=== PATIENT | female | born 1990 | race Two or more races ===

== ENCOUNTER → 2019-04-26 | Outpatient (CLI) | payer BC ==
--- NOTE | 2019-04-26 15:32 | KCIC ---
Study: Ultrasound first trimester DATE: 04/26/2019 12:30 PM INDICATION: First trimester evaluation. COMPARISON: None. TECHNIQUE: Transabdominal ultrasonography of the pelvis was performed. Color Doppler and duplex were utilized as appropriate. FINDINGS: The uterus measures 10.5 x 6.1 x 5.5 cm. The cervix is closed and measures 4 cm. Intrauterine gestational sac containing a pole and yolk sac. heart rate measured at 144 bpm. The yolk sac is measured at 0.5 cm. [place]-rump length measured at 1.13 cm. Estimated gestational age by ultrasound of 7 weeks 2 days. No perigestational hemorrhage is seen. The right ovary measures 5.0 x 3.6 x 3.3 cm. Doppler flow is maintained. Simple right ovarian cyst measured at 3 x 2.6 x 2.3 cm. The left ovary measures 2 x 1.6 x 1.1 cm. Normal Doppler flow is maintained. IMPRESSION: 1. Single live intrauterine with an estimated gestational age by ultrasound of 7 weeks 2 days. No complicating features identified. 2. Simple right ovarian cyst measuring up to 3 cm. Normal Doppler flow to both ovaries. Electronically signed by: LIBRA WORTHY MD (04/26/2019 3:29 PM) [facility]
== END | disposition home or self-care (01) ==
LOC: KCIC US 11:49
PROVIDERS: ATTEND Family Medicine
DX: Z34.91 Encounter for supervision of normal pregnancy, unspecified, first trimester (principal); N83.291 Other ovarian cyst, right side; Z3A.01 Less than 8 weeks gestation of pregnancy
CPT/HCPCS: 76801

== ENCOUNTER → 2019-08-29 | Outpatient (CLI) | payer BC ==
--- NOTE | 2019-08-29 11:07 | KCIC ---
Obstetric ultrasound greater than 14 weeks: Reason for examination: Small for dates. Comparison is made to previous study dated 04/26/2019. Single viable intrauterine gestation is present. Cardiac activity is seen in the 4 chambered heart with a cardiac rate of 131 bpm. Due to positioning, the left ventricular outflow track was difficult to visualize. Placenta is anterior with no previa or abruption. Adequate amniotic fluid appears be present with amniotic fluid index of 10.5 cm. There is a three-vessel umbilical cord with normal insertion. movement was present. No gross abnormality seen at the bladder, stomach, kidneys or spine. No gross intracranial abnormality is apparent. Biparietal diameter 6.39 cm corresponding to gestational age of 25 weeks 6 days. Head circumference 23.35 cm corresponding to gestational age of 25 weeks 3 days. Abdominal circumference 21.45 cm corresponding to gestational age of 26 weeks 0 days. Femur length 4.74 cm corresponding to gestational age of 25 weeks 6 days. Head circumference to abdominal circumference ratio is 1.09. Cephalic index is 80.3. Estimated weight is 860 g or approximately 1 lb.14 oz. Mean gestational age is estimated at 25 weeks 6 days with an estimated date of confinement of 12/06/2019. These dates correspond adequately with clinical dates. Cervix length is normal at 3.59 cm. IMPRESSION: Single viable intrauterine gestation with mean gestational age estimated at 25 weeks 6 days with estimated date of confinement of 12/06/2019. This corresponds adequately to clinical dates. No gross abnormalities evident. Electronically signed by: Kezia Smith MD (08/29/2019 11:04 AM) [id number]
== END ==
LOC: KCIC US 09:24
PROVIDERS: ATTEND Family Medicine
DX: O26.892 Other specified pregnancy related conditions, second trimester (principal); Z3A.25 25 weeks gestation of pregnancy
CPT/HCPCS: 76805

== ENCOUNTER 2019-12-05 05:57 | Inpatient (IN) | payer BC ==
[~2019-12-05] VITALS: Ht 167.6 cm; Wt 92.7 kg
[~2019-12-05 05:57] MED LIST: PNV1TABL25 PO
[2019-12-05] MEDS ORDERED: IBUPROFEN 400 MG TABLET. PO PRN (06:00)
[2019-12-05] MEDS ORDERED: fentaNYL PF VIAL 100 MCG/2 ML VIAL IVP PRN (06:00)
[2019-12-05] MEDS ORDERED: 0.9 % SODIUM CHLORIDE 10 ML DISP.SYRIN. IV PRN (06:00)
[2019-12-05] MEDS ORDERED: TERBUTALINE 1 MG/ML VIAL. SQ PRN (06:00)
[2019-12-05] MEDS ORDERED: OXYTOCIN 30 UNIT/500 ML PREMIX 500 ML IV PRN ×2 (06:00)
[2019-12-05] MEDS ORDERED: BUTORPHANOL 2 MG/ML VIAL. IVP PRN (06:00)
[2019-12-05] MEDS ORDERED: CITRIC ACID/SODIUM CITRATE 30 ML SOLUTION. PO PRN (06:00)
[2019-12-05] MEDS ORDERED: ACETAMINOPHEN 500 MG TABLET PO PRN (06:00)
[2019-12-05] MEDS ORDERED: LIDOCAINE 1% PF 30 ML VIAL. INJ PRN (06:00)
[2019-12-05] MEDS ORDERED: ONDANSETRON PF 4 MG/2 ML VIAL. IVP PRN (06:00)
[2019-12-05] MEDS: IV RINGERS,LACTATED 1000ML 1,000 ML IV SCH ×2 (06:30→13:57)
[2019-12-05 06:43] LABS: BASO # 0.1 x10^3/uL (0.0-0.2); BASO % 1 % (0-3); EOS % 1 % (0-3); HEMATOCRIT 35.6 % (36.0-47.0); HEMOGLOBIN 11.9 g/dL (12.0-15.5); LYMPH # 1.8 x10^3/uL (1.0-4.8); LYMPH % 28 % (24-48); MEAN CORPUSCULAR HEMOGLOBIN 28 pg (25-35); MEAN CORPUSCULAR HGB CONC 34 g/dL (31-37); MEAN CORPUSCULAR VOLUME 84 fL (79-100); MONO # 0.4 x10^3/uL (0.0-1.1); MONO % 7 % (0-9); NEUT # 4.1 x10^3/uL (1.8-7.7); NEUT % 64 % (31-73); PLATELET COUNT 241 x10^3/uL (140-400); RED BLOOD COUNT 4.24 x10^6/uL (3.50-5.40); RED CELL DISTRIBUTION WIDTH 15.6 % (11.5-14.5); WHITE BLOOD COUNT 6.4 x10^3/uL (4.0-11.0)
[2019-12-05 07:23] LABS: BILIRUBIN,URINE NEGATIVE (NEG); CLARITY,URINE CLEAR; COLOR,URINE YELLOW; NITRITE,URINE NEGATIVE (NEG); PROTEIN,URINE NEGATIVE (NEG-TRACE)
[2019-12-05 07:31] LABS: SQUAMOUS EPITHELIAL CELL,UR OCC /LPF
[2019-12-05 07:32] LABS: BACTERIA,URINE FEW /HPF (0-FEW); RBC,URINE OCC /HPF (0-2)
--- NOTE | 2019-12-05 08:46 | PDOC1 ---
OB - History Hx of Present Care: Good Care Ultrasounds: Abnormal US findings Obstetrical Complications: Other (Covid positive) Past Family/Social History * Past Medical, Surgical, Family and Obstetric Histories reviewed from chart. Blood Type: O+ Rubella: Immune RPR/VDRL: Negative GBS Status: Negative HBsAG: Negative OB - Chief Complaint & HPI Date of Admission: Date of Admission: Dec 05, 2019 at 05:57 Chief Complaint/History : 4 Para: 3 EDC: Dec 11, 2019 Reason for admission: active labor Admission Nurse Assessment Rev: Yes OB - Admission Exam Physical Exam HEENT: Normal, Nasal Mucosa Normal, Oropharynx Normal, Moist Membranes, Fontanelles Normal Heart: Regular Rate Lungs: Clear, Equal Abdomen: Gravid Extremities: Normal Pulses, No tenderness or swelling Reflexes: Normal Cervical Dilatation: 5cm Effacement: 100% Membranes: Intact Amniotic Fluid: Clear Heart Rate: Normal Accelerations: Accelerations Present Decelerations: No decelerations Short Term Variability: Present Team Coordinator Variability: Moderate Contractions on Admission: < 5 Minutes Apart Intensity: KASSIDY Alston MD Dec 05, 2019 08:46
[2019-12-05 13:10] VITALS: BP 118/71
[2019-12-05] MEDS ORDERED: PHENYLEPH/MINERAL OIL/PETROLAT RECTAL OINTMENT TUBE. RC PRN (13:45)
[2019-12-05] MEDS ORDERED: MMR per PROTOCOL. MC PRN (13:45)
[2019-12-05] MEDS ORDERED: MAG HYDROX/ALUMINUM HYD/SIMETH 30 ML ORAL.SUSP PO PRN (13:45)
[2019-12-05] MEDS ORDERED: SIMETHICONE 80 MG TAB.CHEW PO PRN (13:45)
[2019-12-05] MEDS ORDERED: MAGNESIUM HYDROXIDE 2,400 MG/30 ML ORAL.SUSP. PO PRN (13:45)
[2019-12-05] MEDS ORDERED: ZOLPIDEM 5 MG TABLET. PO PRN (13:45)
[2019-12-05] MEDS ORDERED: diphenhydrAMINE HCL 25 MG CAPSULE PO PRN (13:45)
[2019-12-05] MEDS ORDERED: TDaP (Adacel) per PROTOCOL. MC PRN (13:45)
[2019-12-05 14:10] VITALS: BP 111/65
--- NOTE | 2019-12-05 14:21 | OP ---
DATE OF SURGERY: DELIVERY NOTE CLINICAL COURSE: This patient is a G4, P3 female admitted for labor with EDC of 12/11/2019. This patient had no risk except for COVID positive during , which completely resolved after mild symptoms. She was presenting for induction began having labor pains at 04:00 a.m. prior to admission. She underwent amniotomy with clear fluid noted and Pitocin augmentation. Obtaining complete dilatation and delivering a viable female infant with Apgars of 8, 9 and 9. was suctioned and 30 seconds of cord resuscitation was accomplished. Cord was clamped and transected, and was handed off. Placenta was delivered intact with 3-vessel cord noted. Uterus was firm with Pitocin and palpation. There was approximately 200 mL blood loss. There is no anesthesia at this delivery. Mother and baby to recovery in stable condition. KASSIDY GOODWIN MD DR: TARA/belgica JOB#: [id number] / [id number]
[2019-12-05] MEDS ORDERED: FERROUS SULFATE 325 MG TABLET. PO SCH (17:00)
[2019-12-05 18:29] VITALS: BP 121/78
[2019-12-05 22:00] VITALS: BP 130/84
[2019-12-06 04:10] VITALS: BP 109/71
[2019-12-06 07:09] LABS: BASO % 1 % (0-3); EOS # 0.1 x10^3/uL (0.0-0.7); EOS % 1 % (0-3); HEMOGLOBIN 10.7 g/dL (12.0-15.5); LYMPH # 1.8 x10^3/uL (1.0-4.8); LYMPH % 23 % (24-48); MEAN CORPUSCULAR HEMOGLOBIN 28 pg (25-35); MEAN CORPUSCULAR HGB CONC 34 g/dL (31-37); MEAN CORPUSCULAR VOLUME 84 fL (79-100); MONO # 0.5 x10^3/uL (0.0-1.1); MONO % 6 % (0-9); NEUT # 5.5 x10^3/uL (1.8-7.7); NEUT % 70 % (31-73); PLATELET COUNT 197 x10^3/uL (140-400); RED CELL DISTRIBUTION WIDTH 15.4 % (11.5-14.5); WHITE BLOOD COUNT 7.9 x10^3/uL (4.0-11.0)
--- NOTE | 2019-12-06 08:07 | PDOC3 ---
OB DISCHARGE SUMMARY DATE OF ADMISSION: 12/05/2019 DATE OF DISCHARGE: 12/06/2019 REASON FOR ADMISSION: Onset of labor INTRAPARTUM PROCEDURES: Spontanous Vag Deliv DISCHARGE INFORMATION: Activity HOSPITAL COURSE Routine CONDITION AT DISCHARGE Stable, F/U 6 weeks, Want Tubal KASSIDY GOODWIN MD Dec 06, 2019 08:07
[2019-12-06] MEDS ORDERED: HYDR-3164 PO (08:10)
[2019-12-06] MEDS ORDERED: MULTIVITAMIN with MINERAL TABLET. PO SCH (09:00)
--- NOTE | 2019-12-06 10:55 | PDOC2 ---
CONSULT Date of Consult Date of Consult DATE: 12/06/19 TIME: 10:53 Reason for Consult Reason for Consult: tubal ligation History of Present Illness Reason for Visit: HPI: 29y PPD #1 s/p who desires permanent sterilization. The pt and her partner are sure they do not want anymore kids. Discussed r/b/a of tubal ligation including risk of regret. Discussed options for sterilization in cluding permanent contraception or interval permanent contraception. Explained that typically a sterilization is done on PPD 1 or 2. With some insurance she would need to wait 30 days before the procedure could be done, but with her insurance she was eligible for either option at this time. Discussed how many tubals in this day and age were performed as a salpingectomy (risk reduction for CA). A salpingectomy could be done more effectively as an interval procedure. The pt feels that she would prefer to have the procedure done on an interval basis. The pt was also informed if we were to do the PP tubal she would probably need to stay an extra night. PMH: Denies PSH: Denies Meds: None All: NKDA OBHx: TSVD x 4 SH: no tob, no EtOH Current Medications Current Medications Current Medications Sodium Chloride (Normal Saline Flush) 3 ml QSHIFT PRN IV AFTER MEDS AND BLOOD DRAWS; Start 12/05/19 at 06:00 Ringer's Solution 1,000 ml @ 125 mls/hr Q8H IV Last administered on 12/05/19at 06:30; Start 12/05/19 at 05:57; Stop 12/05/19 at 20:14; Status DC Butorphanol Tartrate (Stadol) 2 mg PRN Q1HR PRN IVP Severe labor pain; Start 12/05/19 at 06:00 Fentanyl Citrate (Fentanyl 2ml Vial) 100 mcg PRN Q30MIN PRN IVP Severe pain; Start 12/05/19 at 06:00 Acetaminophen (Tylenol) 1,000 mg PRN Q6HRS PRN PO MILD PAIN / TEMP > 100.3'F Last administered on 12/05/19at 13:01; Start 12/05/19 at 06:00 Ondansetron HCl (Zofran) 4 mg PRN Q4HRS PRN IVP NAUSEA/VOMITING 1ST CHOICE; Start 12/05/19 at 06:00 Citric Acid/ Sodium Citrate (Bicitra) 30 ml 1X PRN PRN PO DYSPEPSIA; Start 12/05/19 at 06:00; Stop 12/06/19 at 05:59; Status DC Terbutaline Sulfate (Brethine) 0.25 mg 1X PRN PRN SQ SEE COMMENTS; Start 12/05/19 at 06:00; Stop 12/06/19 at 05:59; Status DC Lidocaine HCl (Xylocaine 1% Pf 30ml Vial) 30 ml 1X PRN PRN INJ SEE COMMENTS; Start 12/05/19 at 06:00; Stop 12/07/19 at 05:59 Oxytocin/Sodium Chloride 500 ml @ 0 mls/hr CONT PRN IV SEE I/O RECORD Last administered on 12/05/19at 12:58; Start 12/05/19 at 06:00 Oxytocin/Sodium Chloride 500 ml @ 0 mls/hr CONT PRN PRN IV Post delivery bleeding; Start 12/05/19 at 06:00 Ibuprofen (Motrin) 800 mg PRN Q6HRS PRN PO MODERATE PAIN 4-6; Start 12/05/19 at 06:00; Stop 12/05/19 at 13:44; Status DC Magnesium Hydroxide (Milk Of Magnesia) 2,400 mg PRN DAILY PRN PO CONSTIPATION; Start 12/05/19 at 13:45 Al Hydroxide/Mg Hydroxide (Mylanta Plus Xs) 30 ml PRN Q4HRS PRN PO HEARTBURN / GAS; Start 12/05/19 at 13:45 Simethicone (Gas-X) 80 mg PRN AFTMEALHC PRN PO GAS / BLOATING; Start 12/05/19 at 13:45 Diphenhydramine HCl (Benadryl) 25 mg PRN Q6HRS PRN PO ITCHING; Start 12/05/19 at 13:45 Phenyleph/Shark Oil/Min Oil/Petrol (Preparation H) 1 michael PRN QID PRN RC RECTAL PAIN; Start 12/05/19 at 13:45 Ferrous Sulfate (Feosol) 325 mg BIDWMEALS PO ; Start 12/05/19 at 17:00; Stop 12/06/19 at 07:42; Status DC Zolpidem Tartrate (Ambien) 5 mg PRN QHS PRN PO INSOMNIA, MAY REPEAT X1; Start 12/05/19 at 13:45 Info (Do NOT chart on this placeholder) 1 ea 1X PRN PRN MC SEE COMMENTS; Start 12/05/19 at 13:45 Info (Do NOT chart on this placeholder) 1 ea 1X PRN PRN MC SEE COMMENTS; Start 12/05/19 at 13:45 Multivitamins (Thera M Plus) 1 tab DAILY PO ; Start 12/06/19 at 09:00 Active Scripts Active [place] 5-325 Tablet (Acetaminophen/Hydrocodone Bitart) 1 Each Tablet 1 Tab PO TID Reported Tablet (Pnv Cmb#95/Ferrous Fumarate/Fa) 1 Each Tablet 1 Tab PO DAILY Allergies Allergies: Coded Allergies: ibuprofen (Verified Allergy, Severe, face swelling, 12/05/19) Physical Exam General: Alert, Oriented X3, Cooperative, No acute distress HEENT: PERRLA, Mucous membr. moist/pink Lungs: Clear to auscultation, Normal air movement Heart: Regular rate, Normal S1, Normal S2, No murmurs Abdomen: Normal bowel sounds, Soft, No tenderness, No hepatosplenomegaly, No masses Extremities: No clubbing, No cyanosis, No edema, Normal pulses, No tenderness/swelling Skin: No rashes, No breakdown Neuro: Normal gait, Normal speech, Normal tone, Sensation intact, Reflexes 2+ Psych/Mental Status: Mental status NL, Mood NL Vitals VITALS Vital Signs Date Time Temp Pulse Resp B/P (MAP) Pulse Ox O2 Delivery O2 Flow Rate FiO2 12/06/19 04:10 98.1 59 14 109/71 (84) 98 Room Air 98.1 Labs Labs Laboratory Tests Test 12/05/19 06:20 12/05/19 07:10 12/05/19 07:15 12/06/19 06:30 White Blood Count 6.4 x10^3/uL (4.0-11.0) 7.9 x10^3/uL (4.0-11.0) Red Blood Count 4.24 x10^6/uL (3.50-5.40) 3.80 x10^6/uL (3.50-5.40) Hemoglobin 11.9 g/dL (12.0-15.5) 10.7 g/dL (12.0-15.5) Hematocrit 35.6 % (36.0-47.0) 32.0 % (36.0-47.0) Mean Corpuscular Volume 84 fL (79-100) 84 fL (79-100) Mean Corpuscular Hemoglobin 28 pg (25-35) 28 pg (25-35) Mean Corpuscular Hemoglobin Concent 34 g/dL (31-37) 34 g/dL (31-37) Red Cell Distribution Width 15.6 % (11.5-14.5) 15.4 % (11.5-14.5) Platelet Count 241 x10^3/uL (140-400) 197 x10^3/uL (140-400) Neutrophils (%) (Auto) 64 % (31-73) 70 % (31-73) Lymphocytes (%) (Auto) 28 % (24-48) 23 % (24-48) Monocytes (%) (Auto) 7 % (0-9) 6 % (0-9) Eosinophils (%) (Auto) 1 % (0-3) 1 % (0-3) Basophils (%) (Auto) 1 % (0-3) 1 % (0-3) Neutrophils # (Auto) 4.1 x10^3/uL (1.8-7.7) 5.5 x10^3/uL (1.8-7.7) Lymphocytes # (Auto) 1.8 x10^3/uL (1.0-4.8) 1.8 x10^3/uL (1.0-4.8) Monocytes # (Auto) 0.4 x10^3/uL (0.0-1.1) 0.5 x10^3/uL (0.0-1.1) Eosinophils # (Auto) 0.0 x10^3/uL (0.0-0.7) 0.1 x10^3/uL (0.0-0.7) Basophils # (Auto) 0.1 x10^3/uL (0.0-0.2) 0.0 x10^3/uL (0.0-0.2) Treponema pallidum Antibody Nonreactive (Nonreactive) Urine Collection Type Unknown Urine Color Yellow Urine Clarity Clear Urine pH 6.0 (<5.0-8.0) Urine Specific [place] 1.020 (1.000-1.030) Urine Protein Negative mg/dL (NEG-TRACE) Urine Glucose (UA) Negative mg/dL (NEG) Urine Ketones (Stick) Negative mg/dL (NEG) Urine Blood Negative (NEG) Urine Nitrite Negative (NEG) Urine Bilirubin Negative (NEG) Urine Urobilinogen Dipstick 1.0 mg/dL (0.2 mg/dL) Urine Leukocyte Esterase Negative (NEG) Urine RBC Occ /HPF (0-2) Urine WBC 1-4 /HPF (0-4) Urine Squamous Epithelial Cells Occ /LPF Urine Bacteria Few /HPF (0-FEW) Urine Mucus Slight /LPF Coronavirus (COVID-19)(PCR) Negative (NEGATIVE) Laboratory Tests Test 12/06/19 06:30 White Blood Count 7.9 x10^3/uL (4.0-11.0) Red Blood Count 3.80 x10^6/uL (3.50-5.40) Hemoglobin 10.7 g/dL (12.0-15.5) Hematocrit 32.0 % (36.0-47.0) Mean Corpuscular Volume 84 fL (79-100) Mean Corpuscular Hemoglobin 28 pg (25-35) Mean Corpuscular Hemoglobin Concent 34 g/dL (31-37) Red Cell Distribution Width 15.4 % (11.5-14.5) Platelet Count 197 x10^3/uL (140-400) Neutrophils (%) (Auto) 70 % (31-73) Lymphocytes (%) (Auto) 23 % (24-48) Monocytes (%) (Auto) 6 % (0-9) Eosinophils (%) (Auto) 1 % (0-3) Basophils (%) (Auto) 1 % (0-3) Neutrophils # (Auto) 5.5 x10^3/uL (1.8-7.7) Lymphocytes # (Auto) 1.8 x10^3/uL (1.0-4.8) Monocytes # (Auto) 0.5 x10^3/uL (0.0-1.1) Eosinophils # (Auto) 0.1 x10^3/uL (0.0-0.7) Basophils # (Auto) 0.0 x10^3/uL (0.0-0.2) Assessment/Plan Assessment/Plan A/P 29y PPD #1 s/p 1.) DPS discussed options, pt advised to make an appt in 5wks for L/S salpingectomy, MARI consent signed today (just in case) 2.) PP doing well, anticipate d/c today KASSIDY PAYNE MD Dec 06, 2019 10:55
[2019-12-06 12:26] VITALS: BP 123/84
== END 2019-12-06 13:45 | disposition home or self-care (01) | DRG 807 ==
LOC: 3 SO LND 05:57 → MERGE 05:57 → 3 NORTH 13:10
PROVIDERS: ADMIT Family Medicine; ATTEND Family Medicine
PROC: 10E0XZZ Delivery of Products of Conception, External Approach (ICD-10-PCS; principal; 2019-12-05)
PROC: 10907ZC Drainage of Amniotic Fluid, Therapeutic from Products of Conception, Via Natural or Artificial Opening (ICD-10-PCS; 2019-12-05)
DX: O80 Encounter for full-term uncomplicated delivery (principal); Z37.0 Single live birth; Z20.828 Contact with and (suspected) exposure to other viral communicable diseases; Z88.8 Allergy status to other drugs, medicaments and biological substances; Z3A.40 40 weeks gestation of pregnancy
CPT/HCPCS: 36415; 81001; 85025; 86592; 86850; 86900; 86901; 92585; J2590; J7120; G0378; U0003-CS

== ENCOUNTER → 2020-01-16 | Outpatient (CLI) | payer BC ==
[~2020-01-16] MED LIST changes: +ACET325T9 PO; +HYDR-3164 PO; +OXYC1TAB15 PO
== END | disposition home or self-care (01) ==
LOC: LAB 14:38
PROVIDERS: ATTEND Obstetrics & Gynecology
DX: Z11.59 Encounter for screening for other viral diseases (principal)
CPT/HCPCS: U0003-CS

== ENCOUNTER 2020-01-20 06:01 | Day surgery (SDC) | payer BC ==
[~2020-01-20 06:01] MED LIST changes: -ACET325T9 PO; -OXYC1TAB15 PO
[2020-01-20 06:54] LABS: BASO % 1 % (0-3); EOS # 0.1 x10^3/uL (0.0-0.7); EOS % 1 % (0-3); HEMATOCRIT 40.4 % (36.0-47.0); HEMOGLOBIN 13.3 g/dL (12.0-15.5); LYMPH # 2.3 x10^3/uL (1.0-4.8); LYMPH % 55 % (24-48); MEAN CORPUSCULAR HEMOGLOBIN 28 pg (25-35); MEAN CORPUSCULAR HGB CONC 33 g/dL (31-37); MEAN CORPUSCULAR VOLUME 85 fL (79-100); MONO # 0.3 x10^3/uL (0.0-1.1); MONO % 7 % (0-9); NEUT # 1.6 x10^3/uL (1.8-7.7); NEUT % 36 % (31-73); PLATELET COUNT 158 x10^3/uL (140-400); RED BLOOD COUNT 4.77 x10^6/uL (3.50-5.40); RED CELL DISTRIBUTION WIDTH 18.1 % (11.5-14.5); WHITE BLOOD COUNT 4.3 x10^3/uL (4.0-11.0)
[2020-01-20] MEDS ORDERED: IV RINGERS,LACTATED 1000ML 1,000 ML IV SCH (07:00)
[2020-01-20] MEDS ORDERED: PROCHLORPERAZINE 10 MG/2 ML VIAL. IV PRN (07:00)
[2020-01-20] MEDS ORDERED: MORPHINE SULFATE 2 MG/ML VIAL. IV PRN (07:00)
[2020-01-20] MEDS ORDERED: fentaNYL PF VIAL 100 MCG/2 ML VIAL IV PRN ×2 (07:00)
[2020-01-20] MEDS ORDERED: ONDANSETRON PF 4 MG/2 ML VIAL. IV PRN (07:00)
[2020-01-20] MEDS ORDERED: HYDROmorphone 2 MG/ML VIAL IV PRN (07:00)
[2020-01-20] MEDS ORDERED: MIDAZOLAM HCL/PF 2 MG/2 ML VIAL. ONE (07:49)
[2020-01-20] MEDS ORDERED: ROCURONIUM 50 MG/5 ML VIAL. ONE (07:55)
[2020-01-20] MEDS ORDERED: ONDANSETRON PF 4 MG/2 ML VIAL. ONE (07:56)
[2020-01-20] MEDS ORDERED: LIDOCAINE 2% PF 5 ML VIAL. ONE (07:56)
[2020-01-20] MEDS ORDERED: SEVOFLURANE 31 TO 60 MINUTES. IH ONE (07:56)
[2020-01-20] MEDS ORDERED: DEXAMETHASONE SOD PHOS 4 MG/ML VIAL ONE ×2 (07:56→08:12)
[2020-01-20] MEDS ORDERED: PROPOFOL 10 MG/ML (20ML) VIAL. IV ONE ×2 (07:56)
[2020-01-20] MEDS ORDERED: KETOROLAC 30 MG/ML VIAL. ONE (08:14)
[2020-01-20] MEDS ORDERED: fentaNYL PF VIAL 100 MCG/2 ML VIAL ONE ×2 (08:24→09:41)
[2020-01-20] MEDS ORDERED: NEOSTIGMINE METHYLSULFATE 5 MG/5 ML SYRINGE. ONE (08:26)
[2020-01-20] MEDS ORDERED: GLYCOPYRROLATE 1 MG/5 ML VIAL. ONE (08:27)
[2020-01-20] MEDS ORDERED: ACET325T9 PO (08:52)
[2020-01-20] MEDS ORDERED: OXYC1TAB15 PO (08:52)
--- NOTE | 2020-01-20 09:19 | PDOC4 ---
OPERATIVE NOTE: PreOp Dx: DPS, Multiparty Post Op Dx: same Procedure: L/S bilateral salpingectomy Surgeon: Gabino Payne Anesthesia: GETA EBL: minimal Complications: None Finding: nml tube and ovaries Path: bilateral tubes KASSIDY PAYNE MD Jan 20, 2020 09:19
[2020-01-20] MEDS ORDERED: oxyCODONE/APAP 5/325 1 TAB TABLET PO ONE (09:30)
[2020-01-20 10:13] VITALS: BP 119/74
--- NOTE | 2020-01-20 10:14 | OP ---
DATE OF SURGERY: 01/20/2020 PREOPERATIVE DIAGNOSES: 1. Desires permanent sterilization. 2. Multiparity. POSTOPERATIVE DIAGNOSES: 1. Desires permanent sterilization. 2. Multiparity. PROCEDURE: Laparoscopic bilateral salpingectomy. SURGEON: Kassidy Payne MD ANESTHESIA: General endotracheal intubation. ESTIMATED BLOOD LOSS: Minimal. COMPLICATIONS: None. FINDINGS: Normal tubes, ovaries and uterus. PATHOLOGY: Bilateral tubal segments. DESCRIPTION OF PROCEDURE: The patient was taken to the operating room where general endotracheal intubation was obtained without difficulty. The patient was prepped and draped in normal sterile fashion. Attention was first turned to the vagina where a sponge stick was placed. Attention was then turned to the abdomen where a 5 mm skin incision was made in her infraumbilical fold. A 5 mm trocar was then placed directly into the abdomen. Intraabdominal placement was confirmed with the laparoscope. At that point, the abdomen was insufflated to 15 mmHg. Once the laparoscope was placed, visualization of the pelvis revealed normal anatomy. A second trocar was then placed on the left approximately two-thirds between the ischial spine and the umbilicus, first by making a 5 mm skin incision followed by placing the 5-mm trocar under direct visualization of the laparoscope. This was then performed on the right side where a 5 mm skin incision was placed two-thirds between the ischial spine and the umbilicus followed by placing a 5 mm trocar under direct visualization of the laparoscope. At that point, the left tube was followed out to the fimbria and grasped. The tube was then undermined with the Harmonic scalpel and the tube from the peritoneum. This was then continued to the level of the uterus. At that point, the tube was ligated off. The tube was then brought through the trocar and sent to pathology. This was performed on the right side where the tube was followed out to the fimbria. The tube was then from the peritoneum. Once the tube was at the level of the uterus, the tube was ligated from the uterus. The segment of the tube was then brought through the trocar and sent to pathology. Good hemostasis was noted. At that point, the laparoscope was removed as well as the instruments. The abdomen was desufflated. At that point, the trocars were then removed. The port sites were then closed with 4-0 Monocryl in a subcuticular manner. The sponge stick was removed from the vagina. The patient tolerated the procedure well. Sponges, needles and laps were correct x 2. The patient was brought to the recovery room in stable condition. KASSIDY PAYNE MD DR: AKI/belgica JOB#: [id number] / [id number]
--- NOTE | 2020-01-24 14:07 | PATHOLOGY ---
[facility] Accession Number: [id number] . 01 Material submitted: . fallopian tube - BILATERAL FALLOPIAN TUBES. Modifiers: bilateral . 01 Clinical history: . DESIRES PERMANENT STERILIZATION, MULTI VALENTIN . 02 Diagnosis: Fallopian tube "bilateral" (sterilization): - Completely transected segments of fallopian tube with features of chronic salpingitis, and superimposed acute inflammation. - Negative for malignancy. (MLK:shelley 01/23/2020) QMS 01/24/2020 1316 Local . 02 Electronically signed: . Mel Patel MD, Pathologist NPI- [id number] . 01 Gross description: . The specimen is received in formalin, labeled "Galeano, Mary Alice, bilateral fallopian tubes" and consists of 2 pink-purple fimbriated fallopian tube segments measuring 4.0 cm in length and up to 0.4 cm in diameter and 5.4 cm in length and up to 0.5 cm in diameter. One is inked black and sectioning each reveals a well-defined lumen with no gross lesions. Tub Rider sections are submitted in A1. (SDY; 01/20/2020) SYU/SYU 01/20/2020 1701 Local . 02 Pathologist provided ICD-10: N70.11 . 02 CPT . 629473 Specimen Comment: A courtesy copy of this report has been sent to [phone], [phone] Specimen Comment: [id number] Specimen Comment: Report sent to / DR GOODWIN Performed at: 01 [facility] [address], [place], [place] [id number] MD Devante Morales MD Phone: [phone] Performed at: 02 [facility] [address] [place], [place] [id number] MD Ghanshyam Deal MD Phone: [phone]
== END 2020-01-20 10:45 | disposition home or self-care (01) ==
LOC: SURG 06:01
PROVIDERS: ATTEND Obstetrics & Gynecology
DX: Z30.2 Encounter for sterilization (principal); Z64.1 Problems related to multiparity; Z79.899 Other long term (current) drug therapy; Z88.8 Allergy status to other drugs, medicaments and biological substances
CPT/HCPCS: 36415; 58661; 81025; 85025; 86850; 86900; 86901; A7015; J1100; J1885; J2250; J2405; J2704; J2710; J3010; J3490; J7120; 88302